=== PATIENT | male | born 1990 | race Caucasian/White ===

== ENCOUNTER 2024-03-24 17:00 | Emergency (ER) | payer OTHER, SELFPAY ==
[2024-03-24] VITALS (12 sets, daily range): BP systolic 134–149; BP diastolic 84–101; PULSE 65–89; RESP 10–20; TEMP 35.5; O2SAT 97–100; BMI 40.7
--- NOTE | 2024-03-24 | XR_ITS ---
Patient: ALONA FAULKNER Facility:?[facility] Patient ID:?[id number] Site Patient ID:?[id number]. Site :?1990 Study:?XRay-Extremity Right Trauma code-03/24/2024 6:17:40 PM Ordering Physician:Ifeanyi Swain Final Report: Indication: Blunt trauma, fall from 1 story. Technique: Three views of the right shoulder. Comparison: Right shoulder radiographs earlier same day dated 03/24/2024. Findings/Impression: There has been interval reduction of the previously seen right shoulder dislocation. The right glenohumeral joint alignment now appears anatomic. There is a Hill-Sachs defect at the posterolateral humeral head. There is a displaced osseous Bankart fracture at the inferior glenoid. Right acromioclavicular joint alignment is anatomic. Visualized portions of the right lung apex are clear. Dictated by Gabe Arroyo MD @ 03/24/2024 6:46:22 PM Signed by:?Gabe Arroyo MD @03/24/2024 6:46:22 PM (Electronic Signature)
[2024-03-24] MEDS: fentaNYL 100 MCG/2 ML inj IVP (17:18)
--- NOTE | 2024-03-24 17:37 | XR_ITS ---
Patient: ALONA FAULKNER Facility:?[facility] Patient ID:?[id number] Site Patient ID:?[id number]. Site :?11/20/1952 Study:?XRay-Shoulder Right -03/24/2024 5:29:22 PM Ordering Physician:?Ifeanyi Banda Final Report: INDICATION: Dislocation. COMPARISON: None available. TECHNIQUE: Two views FINDINGS: Two views of the right shoulder performed at 17 20 and 1722 hours demonstrate anteroinferior dislocation of the humeral head relative to the glenoid. Normal acromioclavicular joint. No fracture is identified. Technically limited scapular Y radiograph. IMPRESSION: Anteroinferior glenohumeral dislocation. No fracture is identified. Dictated by Isaias Baeza MD @ 03/24/2024 5:42:11 PM Signed by:?Isaias Baeza MD @03/24/2024 5:42:11 PM (Electronic Signature)
--- NOTE | 2024-03-24 17:37 | XR_ITS ---
Patient: ALONA FAULKNER Facility:?[facility] Patient ID:?[id number] Site Patient ID:?[id number]. Site :?1990 Study:?XRay-Extremity Right Trauma code-03/24/2024 6:16:59 PM Ordering Physician:Ifeanyi Swain Final Report: Indication: Blunt trauma, fall from 1 story. Technique: Two views of the right elbow, AP, lateral. Comparison: None Findings/Impression: No acute fracture or dislocation. No focal soft tissue abnormality identified. No significant elbow joint effusion. Dictated by Gabe Arroyo MD @ 03/24/2024 6:38:15 PM Signed by:?Gabe Arroyo MD @03/24/2024 6:38:15 PM (Electronic Signature)
--- NOTE | 2024-03-24 17:39 | CT_ITS ---
Patient: ALONA FAULKNER Facility:?[facility] Patient ID:?[id number] Site Patient ID:?[id number]. Site :?1990 Study:?CT-Chest/Abd/Pelvis Trauma code-03/24/2024 6:33:33 PM Ordering Physician:Ifeanyi Swain Final Report: INDICATION: Trauma, fall from 1 story. TECHNIQUE: CT chest, abdomen, and pelvis acquired with 95 mL Isovue 370 contrast. COMPARISON: None. FINDINGS: CHEST: Lungs and pleura: No evidence of pulmonary contusion, laceration, or pneumothorax. Partially calcified 0.8 cm nodule in the lingula, likely reflective of a partially calcified granuloma. Heart and vessels: No cardiomegaly, no pericardial effusion. Thyroid and lower neck: No suspicious thyroid nodule. Mediastinum/hernandez: No lymphadenopathy. Chest wall: No axillary lymphadenopathy. ABDOMEN/PELVIS: Liver: No suspicious focal hepatic lesion. Gallbladder and bile ducts: Unremarkable. Pancreas: Unremarkable. Spleen: Unremarkable. Splenule is noted. No evidence of splenic laceration. Adrenal glands: Unremarkable. Kidneys: Kidneys enhance symmetrically, without hydronephrosis. Too small to characterize hypodense left renal lesions. Retroperitoneum: No lymphadenopathy. Bowel and mesentery: Bowel is not obstructed. No significant ascites, no pneumoperitoneum. Normal appendix. No large mesenteric hematoma. Bladder: Unremarkable for degree of distention. Reproductive organs: No prostatomegaly. Pelvic lymph nodes: No lymphadenopathy. Vessels: Unremarkable. Abdominal wall: No acute abdominal wall abnormality. Bones: Multilevel degenerative changes of the spine. Subtle nondisplaced right anterolateral 4th through 6th rib fractures. Mildly displaced osseous Bankart fracture at the right inferior glenoid. IMPRESSION: 1. Mildly displaced osseous Bankart fracture at the right inferior glenoid. 2. Subtle nondisplaced right anterolateral 4th through 6th rib fractures. 3. No evidence of acute visceral traumatic injury within the chest, abdomen, or pelvis. Please note that all CT scans at this facility use dose modulation, iterative reconstruction, and/or weight-based dosing when appropriate to reduce radiation dose to as low as reasonably achievable. Dictated by Gabe Arroyo MD @ 03/24/2024 7:12:24 PM Signed by:?Gabe Arroyo MD @03/24/2024 7:12:24 PM (Electronic Signature)
--- NOTE | 2024-03-24 17:40 | CT_ITS ---
Patient: ALONA FAULKNER Facility:?[facility] Patient ID:?[id number] Site Patient ID:?[id number]. Site :?1990 Study:?CT-Spine Trauma code-03/24/2024 6:32:34 PM Ordering Physician:Ifeanyi Swain Final Report: INDICATION: Trauma. TECHNIQUE: Noncontrast CT images of the cervical spine. COMPARISON: None. FINDINGS: Straightening of the cervical lordosis. Mild rightward cervical curvature. Vertebral body heights are maintained. No acute fracture or traumatic subluxation. Mild retrolisthesis of C5 on C6. Advanced disc height loss at C5-6. Posterior disc osteophyte complexes contributing up to [id number] spinal canal narrowing at C5-6. Multilevel osseous spurring contributing up to advanced neural foraminal stenosis on the left at C5-6. The lung apices are clear. IMPRESSION: 1. No acute fracture or traumatic subluxation. 2. Multilevel cervical spondylosis, most advanced at C5-6. Please note that all CT scans at this facility use dose modulation, iterative reconstruction, and/or weight-based dosing when appropriate to reduce radiation dose to as low as reasonably achievable. Dictated by Lul Borja MD @ 03/24/2024 6:50:52 PM Signed by:?Lul Borja MD @03/24/2024 6:50:52 PM (Electronic Signature)
--- NOTE | 2024-03-24 17:40 | CT_ITS ---
Patient: ALONA FAULKNER Facility:?[facility] Patient ID:?[id number] Site Patient ID:?[id number]. Site :?1990 Study:?CT-Head Trauma code-03/24/2024 6:31:41 PM Ordering Physician:Ifeanyi Swain Final Report: INDICATION: Fall. TECHNIQUE: Noncontrast CT images of the brain. COMPARISON: None. FINDINGS: The ventricles and sulci are within normal limits for patient age. No mass effect or midline shift. The dash white differentiation is maintained. No acute intracranial hemorrhage or pathologic extra-axial fluid collection. The globes are symmetric. The calvarium is intact. Mild paranasal sinus mucosal thickening. The mastoid air cells are clear. IMPRESSION: No acute intracranial hemorrhage or mass effect. Please note that all CT scans at this facility use dose modulation, iterative reconstruction, and/or weight-based dosing when appropriate to reduce radiation dose to as low as reasonably achievable. Dictated by Lul Borja MD @ 03/24/2024 6:47:57 PM Signed by:?Lul Borja MD @03/24/2024 6:47:57 PM (Electronic Signature)
--- NOTE | 2024-03-24 17:42 | ED.GENADULT ---
HPI - General Adult General Date Seen: 03/24/24 Chief complaint: Fall/Minor Trauma Stated complaint: Fell off ladder 12 feet, R arm injury Time Seen by Provider: 03/24/24 17:08 History of Present Illness HPI narrative: This is a pleasant 34-year-old male brought to the ER today by his for evaluation of injuries, especially right shoulder pain, after a fall and blunt trauma. He is generally healthy. He does have a history of previous shoulder dislocations which have not require reduction at the doctor's office. He had seen an orthopedist once after he dislocated his shoulder, but did not require surgery. It sounds like he did therapy. He was working on a deck today, putting on the back of her barn. He was approximately 14 ft up in the air when his ladder slipped and he fell onto the ground. Then pieces of the deck fell and landed directly on him. He is having a lot of pain in his right shoulder and it feels and looks dislocated to him. Along with that he has scrapes on his right upper back, right ribs, right anterior abdomen. He does not think he hit his head. No known LOC. he does not think he has any the areas of pain, but his right shoulder so intense, he says he really can not concentrate on anything else. He has no history of coagulopathy. No routine medications. No allergies. History from his that he not take any anticoagulants. She saw him fall and then the pieces of the deck he was building fell on top of him. He has scrapes on his chest wall, back, and as well as an obvious deformity of his right shoulder. He was able to ambulate after falling. He denies headache. No numbness or tingling in his arms or legs. Related Data Home Medications Medication Instructions Recorded Confirmed No Known Home Medications 03/24/24 03/24/24 Allergies Allergy/AdvReac Type Severity Reaction Status Date / Time No Known Drug Allergies Allergy Verified 03/24/24 17:14 [facility] Social History Smoking Status: Never smoker Non-prescribed substance use: denies use Exam Narrative: Exam Narrative: Primary Survey: A- patent. Speaking clearly. Phonation normal. No stridor. B- breathing easily. Lung sounds clear and equal. Oxygen saturation normal on room air C- no active bleeding. Blood pressure stable. Symmetric pulses and cap refill in 4 extremities. D- alert and oriented x3. GCS 15. No focal deficits. Constitutional: Appears well-developed and well-nourished. Alert. Conversant. Non toxic. HENT: Head: He has dust and dirt on his head from landing on the ground but no obvious abrasions or scalp hematomas. No depressed skull fracture, Raccoon Eyes, Jay's sign, or hemotympanum. Face normal. TMs normal. Nose: Nose normal. Mouth/Throat: Oral mucosa is clear and moist. no trismus. Pharynx normal. Tonsils symmetric. No tonsillar enlargement, erythema, or exudate. Eyes: Conjunctivae normal. EOM normal. Pupils equal, round, and reactive to light. No scleral icterus. Neck: Normal range of motion. Neck supple. No tracheal deviation present. However due to distracting orthopedic injury, C-spine cannot be cleared without imaging Cardiovascular: Heart rate in the 90s, possibly due to shoulder pain, regular rhythm. No gallop. No friction rub. No murmur heard. Symmetric radial artery pulses Pulmonary/Chest: Effort normal. No stridor. No respiratory distress. No wheezes. No rales. No rhonchi . No tenderness. Abdominal: Soft. Bowel sounds normal. No distension. No mass. No tenderness. No rebound. No guarding. Musculoskeletal: RUE: Deformity of the right shoulder suggestive of a inferior glenohumeral joint dislocation. Intact axillary, radial, median, ulnar nerve sensory function. Normal radial pulse. Normal cap refill. Also tenderness over the distal humerus and elbow. Unable to flex and extend his elbow due to upper arm pain. LUE: Normal range of motion. No tenderness. No deformity RLE: Normal range of motion. No edema. No tenderness. No deformity LLE: Normal range of motion. No edema. No tenderness. No deformity Neurological: Alert and oriented to person, place, and time. Normal strength. CN II-VII intact. No sensory deficit. GCS eye subscore is 4. GCS verbal subscore is 5. GCS motor subscore is 6. Normal coordination Skin: Skin is warm and dry. No rash noted. No pallor. Normal capillary refill. Psychiatric: Normal mood. Normal affect. Const: Vital Signs, click to edit/add: Vital Signs - 24 hr 03/24/24 17:12 03/24/24 17:13 03/24/24 17:15 Temperature 96 F L Pulse Rate 84 89 Pulse Rate [Pulse Oximeter] 86 Respiratory Rate 20 Blood Pressure 134/99 H Blood Pressure [Le ft Upper Arm] 134/99 H Pulse Oximetry 98 97 98 Oxygen Delivery Me thod Room Air 03/24/24 17:15 03/24/24 17:30 03/24/24 17:40 Temperature Pulse Rate 87 73 Pulse Rate [Pulse Oximeter] Respiratory Rate 10 L 12 Blood Pressure 149/101 H Blood Pressure [Le ft Upper Arm] Pulse Oximetry 98 97 Oxygen Delivery Me thod 03/24/24 17:45 03/24/24 18:30 03/24/24 18:31 Temperature Pulse Rate 69 67 69 Pulse Rate [Pulse Oximeter] Respiratory Rate 11 L Blood Pressure 138/84 Blood Pressure [Le ft Upper Arm] Pulse Oximetry 100 100 97 Oxygen Delivery Me thod 03/24/24 18:45 03/24/24 19:00 03/24/24 19:15 Temperature Pulse Rate 72 76 65 Pulse Rate [Pulse Oximeter] Respiratory Rate 16 Blood Pressure Blood Pressure [Le ft Upper Arm] Pulse Oximetry 100 97 99 Oxygen Delivery Me thod 03/24/24 19:30 Temperature Pulse Rate 68 Pulse Rate [Pulse Oximeter] Respiratory Rate Blood Pressure Blood Pressure [Le ft Upper Arm] Pulse Oximetry 98 Oxygen Delivery Me thod Course Course ED Course: Patient arrived and was triaged to ER room 6. We activated a trauma team activation based on fall from height. Responded to his bedside. Initially who was exquisitely uncomfortable due to his shoulder injury. He was disrobed for examination. He had multiple abrasions to his torso including right posterior shoulder, right posterolateral ribs, right flank, and a few abrasions on his left. Patient was extremely uncomfortable and agitated due to his shoulder pain. We attempted relocated gently by scapular manipulation but were unsuccessful due to muscle spasm. Portable right shoulder x-ray confirmed and inferior glenohumeral joint dislocation without any obvious proximal humeral fracture or scapular fracture. We administered fentanyl 100 mcg and Zofran 4 mg. Patient still is having sitting giving pain. We re-attempted scapular manipulation with Dr. Omalley assisting and we were successful in reducing the glenohumeral joint. Postreduction x-rays confirm appropriate alignment but due to demonstrate heel socks and Bankart lesions. He is neurovascularly intact in the arm. Given ongoing pain in his right upper chest and right shoulder as well as multiple abrasions we consider possible other injuries. He is sent for CT imaging. CT head and C-spine came back normal. CT chest abdomen pelvis demonstrate 3 right-sided rib fractures on room ribs 4, 5, 6 on the right side. No associated hemothorax or pneumothorax. No other intrathoracic or intra-abdominal injury. Vital Signs Vital signs: Initial Vital Signs Pulse Rate 84 03/24/24 17:12 Blood Pressure 134/99 H 03/24/24 17:12 Blood Pressure Mean 110 H 03/24/24 17:12 Pulse Oximetry 98 03/24/24 17:12 Vital Signs Pulse Rate 84 03/24/24 17:12 Blood Pressure 134/99 H 03/24/24 17:12 Pulse Oximetry 98 03/24/24 17:12 Temperature 96 F L 03/24/24 17:15 Pulse Rate 68 03/24/24 19:30 Respiratory Rate 16 03/24/24 19:00 Blood Pressure 138/84 03/24/24 18:30 Pulse Oximetry 98 03/24/24 19:30 Oxygen Delivery Method Room Air 03/24/24 17:15 Medications Administered Medications: Discontinued Medications Generic Name Dose Route Start Last Admin Trade Name Freq PRN Reason Stop Dose Admin Fentanyl 100 mcg 03/24/24 17:08 03/24/24 17:18 Fentanyl 100 Mcg/2 Ml Inj IVP 03/24/24 17:09 100 mcg ONCE ONE Administration Hydromorphone HCl 1 mg 03/24/24 17:47 03/24/24 17:53 Hydromorphone 0.5 Mg/0.5 Ml Inj IVP 1 mg Q1H PRN Administration Pain Hydromorphone HCl 0.5 mg 03/24/24 19:48 03/24/24 19:55 Hydromorphone 0.5 Mg/0.5 Ml Inj IVP 0.5 mg Q1H PRN Administration Pain Ondansetron HCl 4 mg 03/24/24 17:08 03/24/24 17:53 Ondansetron 2 Mg/Ml Inj IVP 03/24/24 17:09 4 mg ONCE ONE Administration Medical Decision Making MDM Narrative Medical decision making narrative: This is a robust 34-year-old gentleman presenting to the ER today with multiple injuries after he fell off a ladder while building a deck and then had pieces of the deck land on top of him. A trauma team activation was called based on his mechanism of injury. Initial primary survey showed patent airway, normal alertness, no focal deficits, no active bleeding. His primary concern was severe pain in the right shoulder from a dislocation. This made difficulty even do further evaluation or vital signs. We were able to get vitals and IV. We administered fentanyl. We were subsequently able to reduce his right shoulder glenohumeral joint by scapular manipulation. Fortunately he did not require procedural sedation. Post reduction x-rays do demonstrate Bankart lesion and Hill-Sachs lesion. He is placed into a sling. He will need orthopedic evaluation and follow-up. He has had recurrent dislocations, but never 1 that required medical assistance for reduction. After reducing the shoulder we did obtain workup for other traumatic injuries. Head CT is normal. C-spine CT is normal. CT abdomen pelvis shows no evidence for other intra-abdominal injury or spine fracture. CT chest shows 3 right-sided rib fractures of ribs 4, 5, 6. No associated hemothorax. No pneumothorax. At this point his oxygenation is normal but he is having a lot of pain in the right upper chest and shoulder. Pain is fairly adequately controlled with IV opiates. Likely would not be well controlled with oral pain killers at home. He will require admission for pain control and is at risk for developing worsening pulmonary complications such as contusion. Discussed with our surgeon, Dr. Monroy. She declines to admit and would recommend transfer based on state trauma guidelines. Discussed this with the patient and his . They request transfer to [place]. He is accepted for transfer to [facility] for pain control and monitoring. Lab Data Labs: Lab Results 03/24/24 Range/Units 17:44 WBC 7.07 (4.50-11.00) K/uL RBC 5.16 (4.30-5.90) m/uL Hgb 15.7 (13.5-17.5) gm/dL Hct 44.8 (37.0-53.0) % MCV 87 (80-100) fL MCH 30 (26-34) pg MCHC 35 (32-36) gm/dL RDW Coeff of Clarissa 11.8 (11.5-15.5) % Plt Count 182 (140-440) K/uL Neut % (Auto) 73.5 H (42.0-72.0) % Lymph % (Auto) 19.7 L (20-44) % [place] % (Auto) 6.1 (0.0-11.0) % Eos % (Auto) 0.6 (0.0-7.0) % Baso % (Auto) 0.1 (0.0-3.0) % Neut # (Auto) 5.20 (1.7-7.0) K/uL Lymph # (Auto) 1.40 (0.90-2.90) K/uL [place] # (Auto) 0.40 (0.00-0.90) K/UL Eos # (Auto) 0.04 (0.00-0.50) K/uL Baso # (Auto) 0.01 (0.00-0.30) K/uL Abs Immat Gran (auto) 0.00 (0.00-0.30) K/uL Imm/Tot Granulo (auto) 0.0 % INR 0.94 (0.91-1.10) Sodium 139 (135-149) mmol/L Potassium 3.5 L (3.6-5.1) mmol/L Chloride 107 (96-114) mmol/L Carbon Dioxide 23 (20-32) mmol/L Anion Gap 9 (7-15) mEq/L BUN 21 (5-24) mg/dL Creatinine 1.2 (0.5-1.5) mg/dL Estimated Creat Clear 93.41 Estimated GFR 80 ml/min Glucose 133 H (60-115) mg/dL Calcium 9.5 (8.4-10.6) mg/dL Total Bilirubin 1.2 (0.1-1.5) mg/dL AST 46 H (12-35) U/L ALT 43 (4-50) U/L Alkaline Phosphatase 85 (40-150) U/L Total Protein 7.6 (6.0-8.3) g/dL Albumin 5.0 (3.3-5.0) g/dL Blood Type A Positive Antibody Screen NEGATIVE Imaging Data XR shoulder, right, postreduction: Attestation: I have reviewed the pertinent imaging results. Radiologist's impression: Findings/Impression: There has been interval reduction of the previously seen right shoulder dislocation. The right glenohumeral joint alignment now appears anatomic. There is a Hill-Sachs defect at the posterolateral humeral head. There is a displaced osseous Bankart fracture at the inferior glenoid. Right acromioclavicular joint alignment is anatomic. Visualized portions of the right lung apex are clear. XR elbow right: Attestation: I have reviewed the pertinent imaging results. Radiologist's impression: Two views of the right elbow, AP, lateral. Comparison: None Findings/Impression: No acute fracture or dislocation. No focal soft tissue abnormality identified. No significant elbow joint effusion XR Shoulder RIght: Attestation: I have reviewed the pertinent imaging results. My impression: Inferior glenohumeral joint dislocation. Per Dr. Banda, read at the bedside Radiologist's impression: IMPRESSION: Anteroinferior glenohumeral dislocation. No fracture is identified. CT scan - head: Attestation: I have reviewed the pertinent imaging results. Radiologist's impression: IMPRESSION: No acute intracranial hemorrhage or mass effect. CT C spine: Attestation: I have reviewed the pertinent imaging results. Radiologist's impression: IMPRESSION: 1. No acute fracture or traumatic subluxation. 2. Multilevel cervical spondylosis, most advanced at C5-6. CT Chest/Ab/Pelvis: Attestation: I have reviewed the pertinent imaging results. Radiologist's impression: CHEST: Lungs and pleura: No evidence of pulmonary contusion, laceration, or pneumothorax. Partially calcified 0.8 cm nodule in the lingula, likely reflective of a partially calcified granuloma. Heart and vessels: No cardiomegaly, no pericardial effusion. Thyroid and lower neck: No suspicious thyroid nodule. Mediastinum/hernandez: No lymphadenopathy. Chest wall: No axillary lymphadenopathy. ABDOMEN/PELVIS: Liver: No suspicious focal hepatic lesion. Gallbladder and bile ducts: Unremarkable. Pancreas: Unremarkable. Spleen: Unremarkable. Splenule is noted. No evidence of splenic laceration. Adrenal glands: Unremarkable. Kidneys: Kidneys enhance symmetrically, without hydronephrosis. Too small to characterize hypodense left renal lesions. Retroperitoneum: No lymphadenopathy. Bowel and mesentery: Bowel is not obstructed. No significant ascites, no pneumoperitoneum. Normal appendix. No large mesenteric hematoma. Bladder: Unremarkable for degree of distention. Reproductive organs: No prostatomegaly. Pelvic lymph nodes: No lymphadenopathy. Vessels: Unremarkable. Abdominal wall: No acute abdominal wall abnormality. Bones: Multilevel degenerative changes of the spine. Subtle nondisplaced right anterolateral 4th through 6th rib fractures. Mildly displaced osseous Bankart fracture at the right inferior glenoid. IMPRESSION: 1. Mildly displaced osseous Bankart fracture at the right inferior glenoid. 2. Subtle nondisplaced right anterolateral 4th through 6th rib fractures. 3. No evidence of acute visceral traumatic injury within the chest, abdomen, or pelvis. Discharge Plan Discharge Clinical Impression: Multiple rib fractures, Dislocated shoulder Patient Disposition: [facility] Prescriptions: No Action No Known Home Medications Procedures Orthopedic Fracture Reduction Right shoulder dislocation: Time Out Performed: Yes Side: right (Glenohumeral joint (shoulder)) Analgesia: other (Analgesia with vent home) Technique: direct manipulation (Scapular manipulation, gentle distal traction and lateral traction on the humerus.) Post Reduction X-rays Demonstrate: anatomical reduction Post-reduction neuro exam: intact and no change Post-reduction vascular exam: intact and no change Splint Applied: Yes (Right arm sling)
[2024-03-24] MEDS: ONDANSETRON 2 MG/ML inj 4 MG IVP (17:53)
[2024-03-24] MEDS: HYDROmorphone 0.5 mg/0.5 ml inj 1 MG IVP (17:53)
[2024-03-24 18:06] LABS: Basophils Absolute Auto 0.01 K/uL (0.00-0.30); Basophils Percent Auto 0.1 % (0.0-3.0); Eosinophils Absolute Auto 0.04 K/uL (0.00-0.50); Eosinophils Percent Auto 0.6 % (0.0-7.0); Hematocrit 44.8 % (37.0-53.0); Hemoglobin* 15.7 gm/dL (13.5-17.5); Lymphocytes Percent Auto 19.7 % (20-44); Mean Corpuscular HGB Conc 35 gm/dL (32-36); Mean Corpuscular Hemoglobin 30 pg (26-34); Mean Corpuscular Volume 87 fL (80-100); Monocytes Percent Auto 6.1 % (0.0-11.0); Neutrophils Percent Auto 73.5 % (42.0-72.0); Platelet Count* 182 K/uL (140-440); RDW Coefficient of Variation % 11.8 % (11.5-15.5); Red Blood Count 5.16 m/uL (4.30-5.90); White Blood Count* 7.07 K/uL (4.50-11.00)
[2024-03-24 18:10] LABS: Slide Review Reflex No
[2024-03-24 18:22] LABS: Chloride* 107 mmol/L (96-114); Potassium* 3.5 mmol/L (3.6-5.1); Sodium* 139 mmol/L (135-149)
[2024-03-24 18:23] LABS: INR 0.94 (0.91-1.10); Prothrombin Time 13.2 Seconds
[2024-03-24 18:24] LABS: Creatinine* 1.2 mg/dL (0.5-1.5); Est. Creatinine Clearance* 93.41; Estimated Glomerular Filt Rate 80 ml/min
[2024-03-24 18:25] LABS: Alanine Aminotransferase* 43 U/L (4-50); Alkaline Phosphatase* 85 U/L (40-150); Anion Gap 9 mEq/L (7-15); Aspartate Amino Transferase* 46 U/L (12-35); Bilirubin Total* 1.2 mg/dL (0.1-1.5); Blood Urea Nitrogen* 21 mg/dL (5-24); Calcium* 9.5 mg/dL (8.4-10.6); Carbon Dioxide* 23 mmol/L (20-32); Glucose* 133 mg/dL (60-115); Total Protein* 7.6 g/dL (6.0-8.3)
[2024-03-24] MEDS: HYDROmorphone 0.5 mg/0.5 ml inj IVP (19:55)
== END 2024-03-24 20:04 | disposition short-term general hospital (02) ==
LOC: ED 18:49
PROVIDERS: Emergency Provider Emergency Medicine
DX: S22.41XA Multiple fractures of ribs, right side, initial encounter for closed fracture (principal); S42.144A Nondisplaced fracture of glenoid cavity of scapula, right shoulder, initial encounter for closed fracture; W11.XXXA Fall on and from ladder, initial encounter
CPT/HCPCS: 23650; 36415; 70450; 71260; 72125; 73030; 73070; 74177; 80053; 85025; 85610; 86850; 86900; 86901; 93005; 94761; 96374; 96375; 96376; 99285; 99291; J1170; J2405; J3010; Q9967